=== PATIENT | male | born 1980 | race Caucasian/White ===

== ENCOUNTER 2016-08-28 17:09 | Emergency (ER) | payer OTHER ==
[~2016-08-28] VITALS: Wt 104.8 kg
[~2016-08-28 17:09] MED LIST: 'PARAFON FORTE500 M1 PO; AMOXICILLIN,AM875 MG PO; AMOXICILLIN500 M2 PO; AMOXICILLIN500 MG PO; AMOXIL500 M1 PO; AMOXIL500 MG PO; BENTYL10 MG PO; CARBAMAZEPINE200 MG PO; CATAFLAM50 MG PO; CIPRO500 MG PO; CLARITIN10 MG PO; COMPAZINE10 MG PO; CYCLOBENZAPRINE10 MG PO; DAYPRO600 M1 PO; DOXYCYCLINE MO100 MG PO; DOXYCYCLINE100 M2 PO; FIORICET 325 MG1 TAB PO; FLAGYL500 MG PO; FLEXERIL5 MG PO; FLONASE ALLERG9.9 ML NAS; FLONASE ALLERG9.9 ML NS; Fioricet 325 MG1 TAB PO; HYDROCODONE BIT1 T11 PO; IBU800 MG PO; LOMOTIL 0.025 M1 TA1 PO; MEDROL DOSEPAK4 MG PO; MIDRIN (DURADR1 CAP PO; MIRALAX POWDER17 G1 PO; MOTRIN600 MG PO; MOTRIN800 MG PO; NAPROSYN500 MG PO; NORCO 325 MG-51 TAB PO; NORCO 5-325 TA1 EACH PO; OMEPRAZOLE20 MG PO; OMNICEF300 MG PO; Orphenadrine C100 MG PO; PHENERGAN25 M1 PO; PREDNISONE10 MG PO; PREDNISONE20 M1 PO; PREDNISONE20 MG PO; PYRIDIUM200 MG PO; ROBAXIN750 MG PO; ROBITUSSIN AC 110 ML PO; ROBITUSSIN-AC 160 ML PO; SUDAFED60 MG PO; TEGRETOL200 MG PO; VICODIN ES 7501 TAB PO; ZITHROMAX Z PA250 MG PO; ZOFRAN ODT4 MG SL; ZOFRAN4 MG PO; Zofran4 MG PO
[2016-08-28] MEDS ORDERED: TRAMADOL HCL50 MG PO (18:58)
[2016-08-28] MEDS ORDERED: Motrin,Rufen800 MG PO (18:58)
[2016-08-28] MEDS ORDERED: CYCLOBENZAPRINE5 M3 PO (18:58)
== END 2016-08-28 19:09 | disposition home or self-care (01) ==
LOC: ED 17:09
DX: M54.12 Radiculopathy, cervical region (principal); M62.838 Other muscle spasm

== ENCOUNTER 2016-12-10 22:26 | Emergency (ER) | payer OTHER ==
[~2016-12-10] VITALS: Ht 175.2 cm; Wt 108.9 kg
[~2016-12-10 22:26] MED LIST changes: +CYCLOBENZAPRINE5 M3 PO; +Motrin,Rufen800 MG PO; +TRAMADOL HCL50 MG PO
[2016-12-10] MEDS ORDERED: CYCLOBENZAPRINE5 M3 PO (23:09)
[2016-12-10] MEDS ORDERED: NAPROSYN500 MG PO (23:09)
== END 2016-12-10 23:28 | disposition home or self-care (01) ==
LOC: ED 22:26
DX: S39.012A Strain of muscle, fascia and tendon of lower back, initial encounter (principal); M62.830 Muscle spasm of back; X50.9XXA Other and unspecified overexertion or strenuous movements or postures, initial encounter; Y93.89 Activity, other specified; Y92.810 Car as the place of occurrence of the external cause; Y99.9 Unspecified external cause status

== ENCOUNTER 2016-12-22 20:48 | Emergency (ER) | payer OTHER ==
[~2016-12-22] VITALS: Ht 175.2 cm; Wt 108.9 kg
[2016-12-22] MEDS ORDERED: MEDROL DOSEPAK4 MG PO (22:33)
== END 2016-12-22 22:43 | disposition home or self-care (01) ==
LOC: ED 20:48
DX: S46.912A Strain of unspecified muscle, fascia and tendon at shoulder and upper arm level, left arm, initial encounter (principal); X58.XXXA Exposure to other specified factors, initial encounter; Y93.9 Activity, unspecified; Y92.9 Unspecified place or not applicable; Y99.9 Unspecified external cause status

== ENCOUNTER 2017-02-26 22:12 | Emergency (ER) | payer OTHER ==
[~2017-02-26] VITALS: Ht 175.2 cm; Wt 108.9 kg
== END 2017-02-26 22:56 | disposition home or self-care (01) ==
LOC: ED 22:12
DX: M25.512 Pain in left shoulder (principal)

== ENCOUNTER 2017-03-25 12:18 | Emergency (ER) | payer OTHER ==
[~2017-03-25] VITALS: Ht 175.3 cm; Wt 108.9 kg
[2017-03-25 13:05] LABS: BASO # 0.1 10*3/uL (0.0-0.1); BASO % 0.9 % (0.0-1.0); EOS # 0.1 10*3/uL (0.0-0.4); HEMATOCRIT 44.4 % (42.0-52.0); HEMOGLOBIN 14.6 g/dl (14.0-18.0); LYMPH # 2.4 10*3/uL (1.3-4.4); LYMPH % 35.2 % (27.0-41.0); MEAN CELL VOLUME 84.9 fl (80.0-94.0); MEAN CORPUSCULAR HGB 27.9 pg (27.0-31.0); MEAN CORPUSCULAR HGB CONC 32.9 g/dl (33.0-37.0); MEAN PLATELET VOLUME 10.2 fl (9.6-12.3); MONO # 0.6 10*3/uL (0.1-1.0); MONO % 9.1 % (3.0-9.0); NEUT # 3.6 10*3/uL (2.3-7.9); NEUT % 52.1 % (47.0-73.0); PLATELET COUNT AUTOMATED 288 10*3/uL (130-400); RED BLOOD COUNT 5.23 10*6/uL (4.50-5.90); RED CELL DISTRI WIDTH 12.8 % (0-14.5); WHITE BLOOD COUNT 6.9 10*3/uL (4.8-10.8)
[2017-03-25 13:29] LABS: ALBUMIN 3.6 gm/dl (3.1-4.5); ALKALINE PHOSPHATASE 111 U/L (45-117); BUN 15 mg/dl (7-24); CHLORIDE 106 mmol/L (98-107); CREATININE 0.91 mg/dL (0.70-1.30); MAGNESIUM 2.2 mg/dL (1.5-2.1); POTASSIUM 4.4 mmol/L (3.5-5.1); SGOT/AST 32 IU/L (3-35); SGPT/ALT 62 U/L (12-78); SODIUM 138 mmol/L (136-145); TOTAL PROTEIN 7.8 gm/dL (6.4-8.2)
[2017-03-25] MEDS ORDERED: Motrin,Rufen800 MG PO (14:50)
== END 2017-03-25 15:08 | disposition home or self-care (01) ==
LOC: ED 12:18
PROVIDERS: Emergency Medicine
DX: R51 Headache (principal)

== ENCOUNTER 2017-04-02 21:25 | Emergency (ER) | payer OTHER ==
[~2017-04-02] VITALS: Ht 175.2 cm; Wt 108.9 kg
[2017-04-02] MEDS ORDERED: CYCLOBENZAPRINE5 M3 PO (22:57)
[2017-04-02] MEDS ORDERED: NAPROSYN500 MG PO (22:57)
== END 2017-04-02 23:02 | disposition home or self-care (01) ==
LOC: ED 21:25
DX: S39.012A Strain of muscle, fascia and tendon of lower back, initial encounter (principal); Z79.899 Other long term (current) drug therapy; X58.XXXA Exposure to other specified factors, initial encounter; Y93.89 Activity, other specified; Y92.89 Other specified places as the place of occurrence of the external cause; Y99.8 Other external cause status

== ENCOUNTER 2018-03-24 23:13 | Emergency (ER) | payer SELFPAY ==
[~2018-03-24] VITALS: Ht 177.8 cm; Wt 113.4 kg
[2018-03-24] MEDS ORDERED: CYCLOBENZAPRINE10 MG PO (23:43)
[2018-03-24] MEDS ORDERED: ANAPROX DS550 MG PO (23:43)
== END 2018-03-25 00:43 | disposition home or self-care (01) ==
LOC: ED 23:13
DX: S76.011A Strain of muscle, fascia and tendon of right hip, initial encounter (principal); X58.XXXA Exposure to other specified factors, initial encounter; Y93.89 Activity, other specified; Y92.89 Other specified places as the place of occurrence of the external cause; Y99.8 Other external cause status

== ENCOUNTER 2018-07-20 19:01 | Emergency (ER) | payer OTHER ==
[~2018-07-20] VITALS: Ht 175.2 cm; Wt 96.2 kg
[~2018-07-20 19:01] MED LIST changes: +ANAPROX DS550 MG PO
[2018-08-10] MEDS ORDERED: ZOFRAN4 MG PO (14:17)
[2018-08-10] MEDS ORDERED: FLOMAX0.4 MG PO (14:17)
[2018-08-10] MEDS ORDERED: NAPROSYN500 MG PO (14:17)
== END 2018-07-20 20:10 | disposition home or self-care (01) ==
LOC: ED 19:01
DX: J06.9 Acute upper respiratory infection, unspecified (principal); Z79.899 Other long term (current) drug therapy

== ENCOUNTER → 2018-11-22 | Outpatient (CLI) | payer OTHER ==
[~2018-11-22] MED LIST changes: +FLOMAX0.4 MG PO
[2018-11-22 13:11] LABS: BASO # 0.1 10*3/uL (0.0-0.1); BASO % 0.8 % (0.0-1.0); EOS # 0.2 10*3/uL (0.0-0.4); EOS % 2.5 % (1.0-4.0); HEMATOCRIT 43.1 % (42.0-52.0); HEMOGLOBIN 13.6 g/dl (14.0-18.0); LYMPH % 33.4 % (27.0-41.0); MEAN CORPUSCULAR HGB 27.1 pg (27.0-31.0); MEAN CORPUSCULAR HGB CONC 31.6 g/dl (33.0-37.0); MEAN PLATELET VOLUME 10.5 fl (9.6-12.3); MONO # 0.9 10*3/uL (0.1-1.0); NEUT # 4.7 10*3/uL (2.3-7.9); NEUT % 52.6 % (47.0-73.0); PLATELET COUNT AUTOMATED 285 10*3/uL (130-400); RED BLOOD COUNT 5.01 10*6/uL (4.50-5.90); RED CELL DISTRI WIDTH 13.8 % (0-14.5); WHITE BLOOD COUNT 8.9 10*3/uL (4.8-10.8)
[2018-11-22 13:39] LABS: ALBUMIN 3.6 gm/dl (3.1-4.5); BUN 28 mg/dl (7-24); CHLORIDE 109 mmol/L (98-107); CHOLESTEROL 200 mg/dL (<200); CREATININE 0.93 mg/dL (0.70-1.30); POTASSIUM 3.7 mmol/L (3.5-5.1); SGOT/AST 25 IU/L (3-35); SGPT/ALT 61 U/L (12-78); SODIUM 143 mmol/L (136-145); TOTAL PROTEIN 7.6 gm/dL (6.4-8.2); TRIGLYCERIDES 187 mg/dl (<150); VLDL CHOLESTEROL 37 mg/dL (6-40)
[2018-11-22 13:46] LABS: ALKALINE PHOSPHATASE 114 U/L (45-117); HDL CHOLESTEROL 41 mg/dl (40-60); LDL CHOLESTEROL 122 mg/dL (9-159)
[2018-11-22 13:59] LABS: VITAMIN D, 25-HYDROXY 18.3 ng/mL (30-100)
== END | disposition home or self-care (01) ==
LOC: LAB 12:05
PROVIDERS: Physician Assistant
DX: F31.89 Other bipolar disorder (principal)

== ENCOUNTER 2019-07-13 12:55 | Emergency (ER) | payer OTHER ==
[~2019-07-13] VITALS: Ht 175.2 cm; Wt 113.4 kg
[2019-07-13 13:31] LABS: BACTERIA 1+; BILIRUBIN NEGATIVE (NEGATIVE); BLOOD NEGATIVE (NEGATIVE); CLARITY SL CLOUDY (CLEAR); COLOR YELLOW (YELLOW); EPITHELIAL CELLS 0-2; GLUCOSE NEGATIVE (NEGATIVE); KETONE NEGATIVE (NEGATIVE); LEUKO ESTERASE NEGATIVE (NEGATIVE); MUCOUS 2+; NITRITE NEGATIVE (NEGATIVE); PH 6.5 (5.0-9.0); UROBILINOGEN 0.2 E.U./dl (0.2-1.0); WBC 0-2 wbc/hpf (0-5)
[2019-07-13 15:51] LABS: BASO % 0.4 % (0.0-1.0); EOS # 0.1 10*3/uL (0.0-0.4); EOS % 1.7 % (1.0-4.0); HEMATOCRIT 43.5 % (42.0-52.0); HEMOGLOBIN 13.8 g/dl (14.0-18.0); LYMPH # 2.1 10*3/uL (1.3-4.4); LYMPH % 29.8 % (27.0-41.0); MEAN CELL VOLUME 85.6 fl (80.0-94.0); MEAN CORPUSCULAR HGB 27.2 pg (27.0-31.0); MEAN CORPUSCULAR HGB CONC 31.7 g/dl (33.0-37.0); MEAN PLATELET VOLUME 10.2 fl (9.6-12.3); MONO # 0.8 10*3/uL (0.1-1.0); MONO % 11.1 % (3.0-9.0); NEUT % 56.4 % (47.0-73.0); PLATELET COUNT AUTOMATED 219 10*3/uL (130-400); RED BLOOD COUNT 5.08 10*6/uL (4.50-5.90); RED CELL DISTRI WIDTH 12.8 % (0-14.5); WHITE BLOOD COUNT 7.1 10*3/uL (4.8-10.8)
[2019-07-13 16:06] LABS: ALBUMIN 3.2 gm/dl (3.1-4.5); ALKALINE PHOSPHATASE 107 U/L (45-117); BUN 14 mg/dl (7-24); CHLORIDE 106 mmol/L (98-107); CREATININE 0.95 mg/dL (0.70-1.30); LIPASE 45 U/L (73-393); POTASSIUM 3.7 mmol/L (3.5-5.1); SGOT/AST 16 IU/L (3-35); SGPT/ALT 30 U/L (12-78); SODIUM 137 mmol/L (136-145); TOTAL PROTEIN 6.6 gm/dL (6.4-8.2)
[2019-07-13] MEDS ORDERED: ZOFRAN4 MG PO (16:19)
== END 2019-07-13 16:20 | disposition home or self-care (01) ==
LOC: ED 12:55
PROVIDERS: Physician Assistant
DX: A08.4 Viral intestinal infection, unspecified (principal); Z79.899 Other long term (current) drug therapy

== ENCOUNTER 2020-12-07 18:45 | Emergency (ER) | payer SELFPAY ==
[~2020-12-07] VITALS: Ht 175.2 cm; Wt 122.5 kg
[2020-12-07] MEDS ORDERED: Motrin,Rufen800 MG PO (20:09)
[2020-12-07] MEDS ORDERED: AMOXICILLIN500 M2 PO (20:09)
== END 2020-12-07 20:02 | disposition home or self-care (01) ==
LOC: ED 18:45
DX: K04.7 Periapical abscess without sinus (principal); Z79.899 Other long term (current) drug therapy

== ENCOUNTER 2022-02-16 20:58 | Emergency (ER) | payer SELFPAY ==
[~2022-02-16] VITALS: Ht 172.7 cm; Wt 119.3 kg
[2022-02-16] MEDS ORDERED: AMOXICILLIN500 M2 PO (22:17)
== END 2022-02-16 22:22 | disposition home or self-care (01) ==
LOC: ED 20:58
DX: K04.7 Periapical abscess without sinus (principal); Z79.899 Other long term (current) drug therapy; Z79.2 Long term (current) use of antibiotics

== ENCOUNTER 2023-11-11 23:46 | Emergency (ER) | payer OTHER ==
[~2023-11-11] VITALS: Ht 175.2 cm; Wt 117.9 kg
[2023-11-12] MEDS ORDERED: FAMOTIDINE 50 ML IV ONE (00:05)
[2023-11-12] MEDS ORDERED: Ondansetron Hydrochloride 4 MG/2 ML VIAL IV ONE (00:05)
[2023-11-12] MEDS ORDERED: SODIUM CHLORIDE 0.9% 10 ML VIAL IV ONE (00:05)
[2023-11-12 00:17] LABS: BASO # 0.1 10*3/uL (0.0-0.1); BASO % 0.7 % (0.0-1.0); EOS % 0.1 % (1.0-4.0); HEMATOCRIT 43.9 % (42.0-52.0); LYMPH # 1.4 10*3/uL (1.3-4.4); LYMPH % 19.3 % (27.0-41.0); MEAN CELL VOLUME 86.4 fl (80.0-94.0); MEAN CORPUSCULAR HGB CONC 32.3 g/dl (33.0-37.0); MEAN PLATELET VOLUME 10.2 fl (9.6-12.3); MONO # 0.9 10*3/uL (0.1-1.0); MONO % 13.1 % (3.0-9.0); NEUT # 4.7 10*3/uL (2.3-7.9); NEUT % 66.4 % (47.0-73.0); PLATELET COUNT AUTOMATED 209 10*3/uL (130-400); RED BLOOD COUNT 5.08 10*6/uL (4.50-5.90); RED CELL DISTRI WIDTH 12.9 % (0-14.5); WHITE BLOOD COUNT 7.1 10*3/uL (4.8-10.8)
[2023-11-12 00:28] LABS: ACT PARTIAL THROMBO TIME 28.2 SECONDS (20.0-32.1)
[2023-11-12] MEDS ORDERED: SODIUM CHLORIDE 0.9% 1,000 ML IV ONE (00:29)
[2023-11-12 00:36] LABS: ALKALINE PHOSPHATASE 102 U/L (46-116); BUN 8 mg/dl (9-23); CHLORIDE 104 mmol/L (98-107); LDH 213 U/L (120-246); LIPASE 30 U/L (12-53); POTASSIUM 3.4 mmol/L (3.4-5.1); SGPT/ALT 31 U/L (5-49); TOTAL PROTEIN 7.2 gm/dL (6.0-8.0)
[2023-11-12 00:38] LABS: BILIRUBIN Negative (Negative); BLOOD Trace-Lysed (Negative); CLARITY Clear (Clear); COLOR Yellow (Yellow); GLUCOSE Negative (Negative); KETONE Trace (Negative); LEUKO ESTERASE Negative (Negative); NITRITE Negative (Negative); PH 5.5 (4.5-8.0); SPECIFIC GRAVITY 1.015 (1.001-1.030)
[2023-11-12 00:50] LABS: BACTERIA 1+; MUCOUS 1+
[2023-11-12] MEDS ORDERED: PEPCID20 MG PO (01:27)
[2023-11-12] MEDS ORDERED: Ondansetron4 MG PO (01:27)
== END 2023-11-12 01:36 | disposition home or self-care (01) ==
LOC: ED 23:46
PROVIDERS: Emergency Medicine
DX: K29.70 Gastritis, unspecified, without bleeding (principal); R11.10 Vomiting, unspecified; Z79.899 Other long term (current) drug therapy; Z79.2 Long term (current) use of antibiotics

== ENCOUNTER 2024-02-03 06:02 | Emergency (ER) | payer BC ==
[~2024-02-03] VITALS: Ht 175.2 cm; Wt 117.0 kg
[~2024-02-03 06:02] MED LIST changes: +Ondansetron4 MG PO; +PEPCID20 MG PO
== END 2024-02-03 08:05 | disposition home or self-care (01) ==
LOC: ED 06:02
DX: B34.9 Viral infection, unspecified (principal); Z20.822 Contact with and (suspected) exposure to COVID-19; R19.7 Diarrhea, unspecified; Z79.899 Other long term (current) drug therapy; Z79.2 Long term (current) use of antibiotics

== ENCOUNTER 2024-04-07 04:32 | Emergency (ER) | payer BC ==
[~2024-04-07] VITALS: Ht 175.2 cm; Wt 117.9 kg
[2024-04-07] MEDS ORDERED: Ondansetron Hydrochloride 4 MG/2 ML VIAL IV ONE (04:50)
[2024-04-07] MEDS ORDERED: SODIUM CHLORIDE 0.9% 1,000 ML IV ONE (04:50)
[2024-04-07 05:41] LABS: BUN 17 mg/dl (9-23); CHLORIDE 105 mmol/L (98-107); POTASSIUM 3.9 mmol/L (3.4-5.1)
[2024-04-07 05:59] LABS: BASO % 0.3 % (0.0-1.0); EOS % 0.1 % (1.0-4.0); HEMATOCRIT 45.6 % (42.0-52.0); MEAN CORPUSCULAR HGB 27.9 pg (27.0-31.0); MEAN CORPUSCULAR HGB CONC 32.5 g/dl (33.0-37.0); MEAN PLATELET VOLUME 10.6 fl (9.6-12.3); MONO # 0.8 10*3/uL (0.1-1.0); MONO % 7.1 % (3.0-9.0); NEUT # 8.9 10*3/uL (2.3-7.9); NEUT % 83.2 % (47.0-73.0); PLATELET COUNT AUTOMATED 254 10*3/uL (130-400); WHITE BLOOD COUNT 10.6 10*3/uL (4.8-10.8)
[2024-04-07] MEDS ORDERED: Ondansetron4 MG PO (07:41)
== END 2024-04-07 07:45 | disposition home or self-care (01) ==
LOC: ED 04:32
PROVIDERS: Internal Medicine
DX: B34.9 Viral infection, unspecified (principal); Z20.822 Contact with and (suspected) exposure to COVID-19; R11.2 Nausea with vomiting, unspecified; F41.9 Anxiety disorder, unspecified; G43.909 Migraine, unspecified, not intractable, without status migrainosus; F31.9 Bipolar disorder, unspecified; Z87.442 Personal history of urinary calculi

== ENCOUNTER 2024-10-28 21:25 | Emergency (ER) | payer BC ==
[~2024-10-28] VITALS: Ht 175.2 cm; Wt 113.4 kg
[2024-10-28] MEDS ORDERED: Ondansetron Hydrochloride 4 MG/2 ML VIAL IV ONE (21:55)
[2024-10-28] MEDS ORDERED: diphenhydrAMINE hydrochloride 50 MG/ML VIAL IV ONE (21:55)
[2024-10-28] MEDS ORDERED: Ketorolac Tromethamine 30 MG/ML VIAL IV ONE (21:55)
[2024-10-28 22:06] LABS: BASO # 0.1 10*3/uL (0.0-0.1); EOS # 0.2 10*3/uL (0.0-0.4); EOS % 2.4 % (1.0-4.0); HEMATOCRIT 44.9 % (42.0-52.0); MEAN CELL VOLUME 86.5 fl (80.0-94.0); MEAN CORPUSCULAR HGB 27.7 pg (27.0-31.0); MEAN CORPUSCULAR HGB CONC 32.1 g/dl (33.0-37.0); MEAN PLATELET VOLUME 10.1 fl (9.6-12.3); MONO # 0.7 10*3/uL (0.1-1.0); MONO % 8.5 % (3.0-9.0); NEUT # 5.2 10*3/uL (2.3-7.9); NEUT % 59.8 % (47.0-73.0); PLATELET COUNT AUTOMATED 243 10*3/uL (130-400); RED BLOOD COUNT 5.19 10*6/uL (4.50-5.90); RED CELL DISTRI WIDTH 12.8 % (0-14.5); WHITE BLOOD COUNT 8.7 10*3/uL (4.8-10.8)
[2024-10-28 22:27] LABS: BUN 17 mg/dl (9-23); CHLORIDE 106 mmol/L (98-107); POTASSIUM 3.8 mmol/L (3.4-5.1)
[2024-10-29] MEDS ORDERED: BUTALB-ACETAMI1 EAC2 PO (00:37)
[2024-10-29] MEDS ORDERED: Ondansetron4 MG PO (00:37)
== END 2024-10-29 00:42 | disposition home or self-care (01) ==
LOC: ED 21:25
PROVIDERS: Emergency Medicine
DX: G44.209 Tension-type headache, unspecified, not intractable (principal); R42 Dizziness and giddiness

== ENCOUNTER → 2024-11-09 | Outpatient (CLI) | payer BC ==
[~2024-11-09] MED LIST changes: +BUTALB-ACETAMI1 EAC2 PO
[2024-11-09 16:08] LABS: BASO # 0.1 10*3/uL (0.0-0.1); BASO % 0.6 % (0.0-1.0); EOS # 0.1 10*3/uL (0.0-0.4); EOS % 0.8 % (1.0-4.0); HEMATOCRIT 43.8 % (42.0-52.0); MEAN CELL VOLUME 87.1 fl (80.0-94.0); MEAN CORPUSCULAR HGB 27.8 pg (27.0-31.0); MEAN PLATELET VOLUME 9.8 fl (9.6-12.3); MONO # 0.7 10*3/uL (0.1-1.0); MONO % 7.7 % (3.0-9.0); NEUT # 6.3 10*3/uL (2.3-7.9); NEUT % 66.4 % (47.0-73.0); PLATELET COUNT AUTOMATED 245 10*3/uL (130-400); RED BLOOD COUNT 5.03 10*6/uL (4.50-5.90); RED CELL DISTRI WIDTH 12.8 % (0-14.5); WHITE BLOOD COUNT 9.4 10*3/uL (4.8-10.8)
[2024-11-09 16:14] LABS: BILIRUBIN Negative (Negative); BLOOD Negative (Negative); CLARITY Clear (Clear); COLOR Yellow (Yellow); GLUCOSE Negative (Negative); KETONE Trace (Negative); LEUKO ESTERASE Negative (Negative); NITRITE Negative (Negative); PH 5.5 (4.5-8.0); SPECIFIC GRAVITY 1.025 (1.001-1.030); UROBILINOGEN 0.2 E.U./dl (0.0-1.0)
[2024-11-09 16:36] LABS: BACTERIA 1+; MUCOUS 2+
[2024-11-09 16:59] LABS: ALKALINE PHOSPHATASE 117 U/L (46-116); BUN 20 mg/dl (9-23); CHLORIDE 103 mmol/L (98-107); CHOLESTEROL 188 mg/dL (<200); LDL CHOLESTEROL 115 mg/dL (9-159); POTASSIUM 4.2 mmol/L (3.4-5.1); SGPT/ALT 35 U/L (5-49); THYROXINE (T4) TOTAL 5.7 ug/dl (4.5-10.9); TOTAL PROTEIN 7.2 gm/dL (6.0-8.0); TRIGLYCERIDES 167 mg/dl (<150)
[2024-11-09 17:00] LABS: VITAMIN D, 25-HYDROXY 32.1 ng/mL (30-100)
== END | disposition home or self-care (01) ==
LOC: LAB 15:47
PROVIDERS: Student in an Organized Health Care Education/Training Program; ATTEND Family Medicine
DX: Z71.89 Other specified counseling (principal)

== ENCOUNTER 2024-12-14 13:00 | Emergency (ER) | payer BC ==
[~2024-12-14] VITALS: Ht 172.7 cm; Wt 117.9 kg
[2024-12-14] MEDS ORDERED: CEPHALEXIN500 M1 PO (13:56)
[2024-12-14] MEDS ORDERED: CEPHALEXIN 500 MG CAP PO ONE (14:00)
== END 2024-12-14 13:20 | disposition home or self-care (01) ==
LOC: ED 13:00
DX: S80.211A Abrasion, right knee, initial encounter (principal); L03.115 Cellulitis of right lower limb; Z79.899 Other long term (current) drug therapy; Z87.442 Personal history of urinary calculi; W22.09XA Striking against other stationary object, initial encounter; Y93.89 Activity, other specified; Y92.89 Other specified places as the place of occurrence of the external cause; Y99.8 Other external cause status

== ENCOUNTER 2025-03-24 19:55 | Emergency (ER) | payer BC ==
[~2025-03-24] VITALS: Ht 172.7 cm; Wt 113.4 kg
[~2025-03-24 19:55] MED LIST changes: +CEPHALEXIN500 M1 PO
[2025-03-24] MEDS ORDERED: SODIUM CHLORIDE 0.9% 10 ML VIAL IV ONE (20:25)
[2025-03-24] MEDS ORDERED: Metoclopramide Hydrochloride 10 MG/2 ML VIAL IV ONE (20:25)
[2025-03-24] MEDS ORDERED: SODIUM CHLORIDE 0.9% 1,000 ML IV ONE (20:30)
== END 2025-03-24 21:50 | disposition home or self-care (01) ==
LOC: ED 19:55
DX: G43.909 Migraine, unspecified, not intractable, without status migrainosus (principal); F41.9 Anxiety disorder, unspecified; F31.9 Bipolar disorder, unspecified; Z87.442 Personal history of urinary calculi